=== PATIENT | male | born 1950 | race Caucasian/White ===

== ENCOUNTER → 2017-05-01 | Outpatient (CLI) | payer BC | END | disposition home or self-care (01) | LOC: GMAL 10:42 | PROVIDERS: ATTEND Family Medicine | DX: Z00.01 Encounter for general adult medical examination with abnormal findings (principal) ==

== ENCOUNTER → 2017-11-15 | Outpatient (CLI) | payer BC | LOC: GMAL 11:18 | PROVIDERS: ATTEND Family Medicine | DX: R30.0 Dysuria (principal) ==

== ENCOUNTER → 2018-03-28 | Outpatient (CLI) | payer BC | LOC: GMAL 11:15 | PROVIDERS: ATTEND Family Medicine | DX: E29.1 Testicular hypofunction (principal) ==

== ENCOUNTER → 2018-06-03 | Outpatient (CLI) | payer BC | LOC: GMAL 11:37 | PROVIDERS: ATTEND Family Medicine | DX: R53.83 Other fatigue (principal) ==

== ENCOUNTER → 2018-07-24 | Outpatient (CLI) | payer BC ==
--- NOTE | 2018-07-24 17:07 | US ---
EXAM DESCRIPTION: Venous,Lower Extremity RT: ULTRASOUND. CLINICAL HISTORY: MASS R22.42 COMPARISON: None Available. TECHNIQUE: Jewell-scale and doppler sonographic evaluation of the deep venous system of the right lower extremity. FINDINGS: Doppler evaluation shows normal color flow and normal phasicity and augmentation of the right common femoral vein, femoral vein, popliteal vein, peroneal, anterior and posterior tibial vein. Also in the proximal and mid greater saphenous vein [id number]. The right lower extremity deep veins were completely compressible; normal occlusion with transducer pressure. Jewell-scale survey showed no echogenic thrombus within these veins. The right greater saphenous vein contained echogenic material on grayscale images in the segments at the knee. Also in the lesser saphenous vein below the knee. These superficial veins were not compressible with the transducer. Doppler evaluation showed no color flow or vascular waveform at the knee and below the knee in the lesser saphenous vein. IMPRESSION: 1. Duplex ultrasound evaluation of the right lower extremity deep venous system showing no evidence of thrombosis. 2. Duplex ultrasound evaluation showing thrombosis in the greater saphenous vein at the knee and in the lesser saphenous vein below the knee CRITICAL COMMUNICATION: The critical value was discussed directly by phone with Dr. Allen Ornelas at approximately 1145 hours, on July 24, 2018. Electronically signed by: Parker Brannon MD 07/24/2018 5:06 PM RAT EXTERMINATOR
== END ==
LOC: US 10:47
PROVIDERS: ATTEND Family Medicine
DX: R22.42 Localized swelling, mass and lump, left lower limb (principal)

== ENCOUNTER → 2019-02-13 | Outpatient (CLI) | payer BC | LOC: GMAL 10:50 | PROVIDERS: ATTEND Family Medicine | DX: Z00.01 Encounter for general adult medical examination with abnormal findings (principal) ==

== ENCOUNTER → 2019-03-06 | Outpatient (CLI) | payer BC | LOC: GMAL 10:36 | PROVIDERS: ATTEND Family Medicine | DX: R97.20 Elevated prostate specific antigen [PSA] (principal) ==

== ENCOUNTER → 2020-02-23 | Outpatient (CLI) | payer BC | LOC: GMAL 14:41 | PROVIDERS: ATTEND Family Medicine | DX: D51.3 Other dietary vitamin B12 deficiency anemia (principal); E55.9 Vitamin D deficiency, unspecified; R53.83 Other fatigue; E78.49 Other hyperlipidemia; I10 Essential (primary) hypertension ==

== ENCOUNTER → 2020-03-02 | Outpatient (CLI) | payer BC ==
--- NOTE | 2020-03-02 15:56 | US ---
EXAM DESCRIPTION: Abdomen,Complete: Ultrasound. CLINICAL HISTORY: 69 years MaleABNORMAL RESULTS OF LIVER FUNCTION STUDIES COMPARISON: None Available. TECHNIQUE: Transabdominal scanning: grayscale and Doppler modes. FINDINGS: Gallbladder: Surgically removed. No fluid in the gallbladder fossa. Abdomen Non-tender with transducer pressure. Common bile duct: caliber 7.0 mm upper normal limits post cholecystectomy. Liver: Heterogeneously increased echogenicity; contour liver capsule smooth where seen. No fluid around the liver. Intrahepatic biliary ducts normal caliber. Doppler hepatopedal flow and normal caliber portal vein 10 mm.. Long axis right lobe 17.2 cm. Pancreas: normal size and echogenicity. Duct not seen. Complete abdominal aorta: Normal caliber from the proximal segment to the distal bifurcation.. IVC: visualized and normal caliber. Right kidney: long axis measures 10.6 cm; volume 208.5 mL.. Normal cortical echogenicity.. Normal cortical thickness. No echogenic stones; no hydronephrosis. Capsule is slightly lobulated. Left kidney: long axis measures 9.4 cm; volume 172.0 mL.. Increased cortical echogenicity.. Normal cortical thickness. No echogenic stones; no hydronephrosis. Capsule is slightly lobulated. Spleen: Normal. No focal lesions.. 12.7 cm. long axis. Other: None. IMPRESSION: 1. Post cholecystectomy. No fluid. Abdomen nontender with transducer pressure. Common bile duct caliber upper normal limits post cholecystectomy. Spleen is negative. 2. Steatosis of the liver and mild enlargement. Physiologic vascularity. Pancreas is negative. 3. Right kidney is unremarkable. Increased echogenicity of the cortex of the left kidney and decreased size compared to the right kidney. Normal cortical thickness. Capsule of both kidneys slightly lobulated. These are most likely changes related to aging. Correlate with renal function studies. Normal caliber of the abdominal aorta and IVC Electronically signed by: Parker Brannon MD 03/02/2020 3:54 PM CDT
== END | disposition home or self-care (01) ==
LOC: LAB.O 07:58
PROVIDERS: ATTEND Family Medicine
DX: E83.52 Hypercalcemia (principal); R94.5 Abnormal results of liver function studies

== ENCOUNTER → 2020-03-25 | Outpatient (CLI) | payer OTHER | LOC: GMAL 11:04 | PROVIDERS: ATTEND Family Medicine | DX: R97.20 Elevated prostate specific antigen [PSA] (principal) ==

== ENCOUNTER → 2020-05-12 | Outpatient (CLI) | payer OTHER | LOC: LAB.O 13:03 | PROVIDERS: ATTEND Internal Medicine Gastroenterology | DX: R94.5 Abnormal results of liver function studies (principal); K70.0 Alcoholic fatty liver; K62.5 Hemorrhage of anus and rectum; K21.9 Gastro-esophageal reflux disease without esophagitis; K30 Functional dyspepsia; I10 Essential (primary) hypertension; E11.9 Type 2 diabetes mellitus without complications ==

== ENCOUNTER → 2020-08-30 | Outpatient (CLI) | payer OTHER | LOC: GMAL 15:03 | PROVIDERS: ATTEND Family Medicine | DX: D51.3 Other dietary vitamin B12 deficiency anemia (principal); I10 Essential (primary) hypertension; E11.9 Type 2 diabetes mellitus without complications; R53.83 Other fatigue; E78.49 Other hyperlipidemia ==